=== PATIENT | male | born 1970 | race Caucasian/White ===

== ENCOUNTER 2022-03-27 10:51 | Outpatient (CLI) | payer BC, SELFPAY | END 2022-03-27 10:52 | disposition home or self-care (01) | LOC: PUVA 10:51 | PROVIDERS: PCP Family Medicine; Visit Provider Dermatology | DX: L40.9 Psoriasis, unspecified (principal) | CPT/HCPCS: 96900 ==

== ENCOUNTER 2022-03-28 07:31 | Outpatient (CLI) | payer BC, SELFPAY | END 2022-03-28 07:32 | disposition home or self-care (01) | LOC: PUVA 07:31 | PROVIDERS: PCP Family Medicine; Visit Provider Dermatology | DX: L40.9 Psoriasis, unspecified (principal) | CPT/HCPCS: 96900 ==

== ENCOUNTER 2022-04-03 07:44 | Outpatient (CLI) | payer BC, SELFPAY | END 2022-04-03 07:45 | disposition home or self-care (01) | LOC: PUVA 07:44 | PROVIDERS: PCP Family Medicine; Visit Provider Dermatology | DX: L40.9 Psoriasis, unspecified (principal) | CPT/HCPCS: 96900 ==

== ENCOUNTER 2022-04-04 07:44 | Outpatient (CLI) | payer BC, SELFPAY | END 2022-04-04 07:45 | disposition home or self-care (01) | LOC: PUVA 07:45 | PROVIDERS: PCP Family Medicine; Visit Provider Dermatology | DX: L40.9 Psoriasis, unspecified (principal) | CPT/HCPCS: 96900 ==

== ENCOUNTER 2022-04-11 11:17 | Outpatient (CLI) | payer BC, SELFPAY | END 2022-04-11 11:18 | disposition home or self-care (01) | LOC: PUVA 04-13 11:18 | PROVIDERS: PCP Family Medicine; Visit Provider Dermatology | DX: L40.9 Psoriasis, unspecified (principal) | CPT/HCPCS: 96900 ==

== ENCOUNTER 2022-04-14 07:32 | Outpatient (CLI) | payer BC, SELFPAY | END 2022-04-14 07:33 | disposition home or self-care (01) | LOC: PUVA 07:32 | PROVIDERS: PCP Family Medicine; Visit Provider Dermatology | DX: L40.9 Psoriasis, unspecified (principal) | CPT/HCPCS: 96900 ==

== ENCOUNTER 2022-04-17 10:53 | Outpatient (CLI) | payer BC, SELFPAY | END 2022-04-17 10:54 | disposition home or self-care (01) | LOC: PUVA 10:53 | PROVIDERS: PCP Family Medicine; Visit Provider Dermatology | DX: L40.9 Psoriasis, unspecified (principal) | CPT/HCPCS: 96900 ==

== ENCOUNTER 2022-04-18 08:01 | Outpatient (CLI) | payer BC, SELFPAY | END 2022-04-18 08:02 | disposition home or self-care (01) | LOC: PUVA 08:02 | PROVIDERS: PCP Family Medicine; Visit Provider Dermatology | DX: L40.9 Psoriasis, unspecified (principal) | CPT/HCPCS: 96900 ==

== ENCOUNTER 2022-04-24 10:36 | Outpatient (CLI) | payer BC, SELFPAY | END 2022-04-24 10:37 | disposition home or self-care (01) | LOC: PUVA 10:36 | PROVIDERS: PCP Family Medicine; Visit Provider Dermatology | DX: L40.9 Psoriasis, unspecified (principal) | CPT/HCPCS: 96900 ==

== ENCOUNTER 2022-04-25 08:11 | Outpatient (CLI) | payer BC, SELFPAY | END 2022-04-25 08:12 | disposition home or self-care (01) | LOC: PUVA 08:11 | PROVIDERS: PCP Family Medicine; Visit Provider Dermatology | DX: L40.9 Psoriasis, unspecified (principal) | CPT/HCPCS: 96900 ==

== ENCOUNTER 2022-05-01 10:49 | Outpatient (CLI) | payer BC, SELFPAY | END 2022-05-01 10:50 | disposition home or self-care (01) | LOC: PUVA 10:49 | PROVIDERS: PCP Family Medicine; Visit Provider Dermatology | DX: L40.9 Psoriasis, unspecified (principal) | CPT/HCPCS: 96900 ==

== ENCOUNTER 2022-05-02 10:51 | Outpatient (CLI) | payer BC, SELFPAY | END 2022-05-02 10:52 | disposition home or self-care (01) | LOC: PUVA 10:51 | PROVIDERS: PCP Family Medicine; Visit Provider Dermatology | DX: L40.9 Psoriasis, unspecified (principal) | CPT/HCPCS: 96900 ==

== ENCOUNTER 2022-05-08 10:54 | Outpatient (CLI) | payer BC, SELFPAY | END 2022-05-08 10:55 | disposition home or self-care (01) | LOC: PUVA 10:54 | PROVIDERS: PCP Family Medicine; Visit Provider Dermatology | DX: L40.9 Psoriasis, unspecified (principal) | CPT/HCPCS: 96900 ==

== ENCOUNTER 2022-05-09 10:12 | Outpatient (CLI) | payer BC, SELFPAY | END 2022-05-09 10:13 | disposition home or self-care (01) | LOC: PUVA 10:12 | PROVIDERS: PCP Family Medicine; Visit Provider Dermatology | DX: L40.9 Psoriasis, unspecified (principal) | CPT/HCPCS: 96900 ==

== ENCOUNTER 2022-05-19 10:57 | Outpatient (CLI) | payer BC, SELFPAY | END 2022-05-19 10:58 | disposition home or self-care (01) | LOC: PUVA 10:58 | PROVIDERS: PCP Family Medicine; Visit Provider Dermatology | DX: L40.9 Psoriasis, unspecified (principal) | CPT/HCPCS: 96900 ==

== ENCOUNTER 2022-05-22 10:32 | Outpatient (CLI) | payer BC, SELFPAY | END 2022-05-22 10:33 | disposition home or self-care (01) | LOC: PUVA 10:54 | PROVIDERS: PCP Family Medicine; Visit Provider Dermatology | DX: L40.9 Psoriasis, unspecified (principal) | CPT/HCPCS: 96900 ==

== ENCOUNTER 2022-05-26 10:55 | Outpatient (CLI) | payer BC, SELFPAY | END 2022-05-26 10:56 | disposition home or self-care (01) | LOC: PUVA 10:55 | PROVIDERS: PCP Family Medicine; Visit Provider Dermatology | DX: L40.9 Psoriasis, unspecified (principal) | CPT/HCPCS: 96900 ==